=== PATIENT | female | born 1975 | race Hispanic/Latino ===

== ENCOUNTER 2022-09-12 12:10 | Emergency (ER) | payer BC ==
[2022-09-12] VITALS (8 sets, daily range): BP systolic 116–145; BP diastolic 49–70
[~2022-09-12 12:10] MED LIST: ANUSOL-HC25 MG RE; AUGMENTIN500 MG OR; DICLOFENAC SODI75 MG PO; DOXY-CAPS100 MG PO; NO HOME MEDS; PERCOCET 5/325M1 TAB OR; PRILOSEC20 MG/CAP PO; PROCTOFOAM HC10 GM RE; RECTICARE EX; [UNRECOGNIZED DRUG - CODE] EX
[2022-09-12 14:34] LABS: BASO% 0.9 % (0-3); EOS% 3.4 % (0-8); IMMATURE GRANULOCYTES 0.3 % (0.0-5.0); LYMPH% 35.3 % (15-41); MEAN CORPUSCULAR HGB 19.6 pG CALC (26.0-32.0); MEAN CORPUSCULAR HGB CONC 29.8 g/dL CAL (32.0-36.0); MONO% 10.7 % (2-13); NEUT# 2.9 thou/uL (2.00-7.15); NEUT% 49.4 % (42-76); RED BLOOD COUNT 4.38 mill/uL (4.20-5.60); RED CELL DISTRI WIDTH 18.3 % (11.5-15.5)
[2022-09-12 14:35] LABS: HEMATOCRIT 28.9 % (37.0-47.0); HEMOGLOBIN 8.6 g/dl (12.0-16.0)
[2022-09-12 14:47] LABS: ALBUMIN 4.4 g/dL (3.2-5.0); ALKALINE PHOSPHATASE 66 u/l (38-126); ANION GAP 9 (6-22 (CALC)); BUN 10 mg/dL (7-17); BUN/CREATININE RATIO 19 (12-20 (CALC)); CARBON DIOXIDE 24 mmol/l (22-30); CHLORIDE 107 mmol/l (95-108); CREATININE 0.5 mg/dL (0.5-1.0); GFR FOR AFR.AMER. > 60 ML/MIN (>=60 (CALC)); GFR OTHER RACES > 60 ML/MIN (>=60 (CALC)); SGOT/AST 29 u/l (14-36); SODIUM 136 mmol/l (137-146); TOTAL PROTEIN 7.9 g/dL (6.3-8.2)
== END 2022-09-12 17:52 | disposition home or self-care (01) | DRG 313 ==
LOC: ED 12:10
PROVIDERS: Family Medicine
DX: R07.9 Chest pain, unspecified (principal); M54.50 Low back pain, unspecified

== ENCOUNTER 2024-05-03 10:37 | Emergency (ER) | payer BC ==
[2024-05-03] VITALS (39 sets, daily range): BP systolic 56–148; BP diastolic 39–91
[~2024-05-03] VITALS: Ht 154.9 cm; Wt 92.9 kg
[2024-05-03 11:09] LABS: BASO% 1.1 % (0-3); EOS% 1.8 % (0-8); HEMATOCRIT 24.2 % (37.0-47.0); IMMATURE GRANULOCYTES 0.7 % (0.0-5.0); LYMPH% 27.7 % (15-41); MONO% 9.4 % (2-13); NEUT# 3.29 thou/uL (2.00-7.15); NEUT% 59.3 % (42-76); RED BLOOD COUNT 4.2 mill/uL (4.20-5.60); RED CELL DISTRI WIDTH 21.6 % (11.5-15.5)
[2024-05-03 11:13] LABS: URINE BILIRUBIN - DIPSTICK Negative (NEGATIVE); URINE BLOOD DIPSTICK Moderate (NEGATIVE); URINE GLUCOSE - DIPSTICK Negative (NEGATIVE); URINE KETONE Negative (NEGATIVE); URINE LEUK ESTERASE Negative (NEGATIVE); URINE NITRITE - DIPSTICK Negative (Negative); URINE PH 5.5 (4.5-8.0); URINE PROTEIN - DIPSTICK Negative (NEG-TRACE); URINE SPECIFIC GRAVITY >=1.030; URINE UROBILINOGEN - DIPSTICK 0.2 E.U./dL (0.2)
[2024-05-03 11:17] LABS: HEMOGLOBIN 6.3 g/dl (12.0-16.0); MEAN CELL VOLUME 57.6 fL CALC (80.0-100.0)
[2024-05-03 11:25] LABS: URINE COLOR Yellow
[2024-05-03 11:26] LABS: URINE MUCUS FEW hpf (NONE-FEW); URINE SQUAMOUS EPITHELIAL CELL FEW EPI/hpf (0-FEW); URINE WBC 0-2 WBC/hpf (0-5)
[2024-05-03 11:26] LABS: ALBUMIN 4.3 g/dL (3.2-5.0); CREATININE 0.5 mg/dL (0.5-1.0); POTASSIUM 3.7 mmol/l (3.5-5.1); TOTAL PROTEIN 7.6 g/dL (6.3-8.2)
[2024-05-03 11:27] LABS: BILIRUBIN, TOTAL 0.4 mg/dL (0.02-1.3)
[2024-05-03] MEDS ORDERED: SODIUM CHLORIDE 0.9% 500 ML IV ONE (11:35)
[2024-05-03 11:58] LABS: TSH, 3RD GENERATION 3.42 uIU/mL (0.47 - 4.68)
[2024-05-03] MEDS ORDERED: FERROUS SULF325 M3 PO (17:46)
== END 2024-05-03 18:26 | disposition home or self-care (01) | DRG 812 ==
LOC: ED 10:37
PROVIDERS: Family Medicine
PROC: 30233N1 Transfusion of Nonautologous Red Blood Cells into Peripheral Vein, Percutaneous Approach (ICD-10-PCS; principal; 2024-05-03)
PROC: 30233N1 Transfusion of Nonautologous Red Blood Cells into Peripheral Vein, Percutaneous Approach (ICD-10-PCS; 2024-05-03)
DX: D62 Acute posthemorrhagic anemia (principal); N92.0 Excessive and frequent menstruation with regular cycle
CPT/HCPCS: P9016

== ENCOUNTER 2024-09-12 12:10 | Emergency (ER) | payer BC ==
[~2024-09-12] VITALS: Ht 154.9 cm; Wt 98.0 kg
[2024-09-12] VITALS (8 sets, daily range): BP systolic 115–131; BP diastolic 65–94
[~2024-09-12 12:10] MED LIST changes: +FERROUS SULF325 M3 PO
[2024-09-12] MEDS ORDERED: SODIUM CHLORIDE 0.9% 1,000 ML IV ONE (12:30)
[2024-09-12 13:10] LABS: BASO% 0.8 % (0-3); EOS% 1.1 % (0-8); IMMATURE GRANULOCYTES 0.3 % (0.0-5.0); LYMPH% 24.1 % (15-41); MEAN CORPUSCULAR HGB 26.5 pG CALC (26.0-32.0); MEAN CORPUSCULAR HGB CONC 32.5 g/dL CAL (32.0-36.0); MONO% 6.8 % (2-13); NEUT# 4.21 thou/uL (2.00-7.15); NEUT% 66.9 % (42-76); RED BLOOD COUNT 4.57 mill/uL (4.20-5.60)
[2024-09-12 13:16] LABS: HEMATOCRIT 37.2 % (37.0-47.0); HEMOGLOBIN 12.1 g/dl (12.0-16.0); MEAN CELL VOLUME 81.4 fL CALC (80.0-100.0)
[2024-09-12 13:22] LABS: ALKALINE PHOSPHATASE 70 u/l (38-126); ANION GAP 11 (6-22 (CALC)); BILIRUBIN, TOTAL 0.4 mg/dL (0.02-1.3); BUN 15 mg/dL (7-17); BUN/CREATININE RATIO 26 (12-20 (CALC)); CARBON DIOXIDE 25 mmol/l (22-30); CHLORIDE 107 mmol/l (95-108); CREATININE 0.6 mg/dL (0.5-1.0); ESTIMATED GFR 111 ML/MIN (>=90 (CALC)); SGOT/AST 28 u/l (14-36); SODIUM 138 mmol/l (137-146); TOTAL PROTEIN 7.4 g/dL (6.3-8.2)
[2024-09-12 13:38] LABS: BETA-HCG, QUANT(RESULT NUMBER) <2 mIU/mL
[2024-09-12 13:54] LABS: URINE BLOOD DIPSTICK Large (NEGATIVE); URINE GLUCOSE - DIPSTICK Negative (NEGATIVE); URINE KETONE Trace mg/dL (NEGATIVE); URINE LEUK ESTERASE Negative (NEGATIVE); URINE NITRITE - DIPSTICK Negative (Negative); URINE PH 5.5 (4.5-8.0); URINE PROTEIN - DIPSTICK 100 mg/dL (NEG-TRACE); URINE SPECIFIC GRAVITY >=1.030; URINE UROBILINOGEN - DIPSTICK 0.2 E.U./dL (0.2)
[2024-09-12 14:05] LABS: URINE COLOR Dark yellow
[2024-09-12 14:07] LABS: URINE RBC 25-50 RBC/hpf (0-5)
[2024-09-12 14:08] LABS: URINE AMORPH SEDIMENT MODERATE hpf (NONE-FEW); URINE BACTERIA MODERATE hpf
[2024-09-12] MEDS ORDERED: PROGESTERONE200 MG PO (16:41)
[2024-09-12] MEDS ORDERED: KEFLEX500 MG PO (16:41)
== END 2024-09-12 16:45 | disposition home or self-care (01) | DRG 760 ==
LOC: ED 12:10
PROVIDERS: Nurse Practitioner
DX: N93.8 Other specified abnormal uterine and vaginal bleeding (principal); N39.0 Urinary tract infection, site not specified; D25.9 Leiomyoma of uterus, unspecified

== ENCOUNTER 2024-10-10 16:29 | Emergency (ER) | payer BC ==
[~2024-10-10] VITALS: Ht 154.9 cm; Wt 90.7 kg
[2024-10-10] VITALS (10 sets, daily range): BP systolic 116–144; BP diastolic 67–93
[~2024-10-10 16:29] MED LIST changes: +KEFLEX500 MG PO; +PROGESTERONE200 MG PO
[2024-10-10] MEDS ORDERED: SODIUM CHLORIDE 0.9% 1,000 ML IV ONE (16:50)
[2024-10-10 17:12] LABS: BASO% 0.8 % (0-3); EOS% 1.9 % (0-8); HEMATOCRIT 33.5 % (37.0-47.0); HEMOGLOBIN 10.4 g/dl (12.0-16.0); IMMATURE GRANULOCYTES 0.4 % (0.0-5.0); LYMPH% 29.9 % (15-41); MEAN CELL VOLUME 83.8 fL CALC (80.0-100.0); MONO% 7.7 % (2-13); NEUT# 3.07 thou/uL (2.00-7.15); NEUT% 59.3 % (42-76); RED CELL DISTRI WIDTH 14.9 % (11.5-15.5)
[2024-10-10 17:35] LABS: ALBUMIN 4.3 g/dL (3.2-5.0); BILIRUBIN, TOTAL 0.5 mg/dL (0.02-1.3); CREATININE 0.5 mg/dL (0.5-1.0); POTASSIUM 4.2 mmol/l (3.5-5.1); TOTAL PROTEIN 7.4 g/dL (6.3-8.2)
[2024-10-10 18:51] LABS: BASO% 0.9 % (0-3); EOS% 0.9 % (0-8); HEMATOCRIT 31.4 % (37.0-47.0); HEMOGLOBIN 9.7 g/dl (12.0-16.0); IMMATURE GRANULOCYTES 0.2 % (0.0-5.0); LYMPH% 23.9 % (15-41); MEAN CELL VOLUME 84.4 fL CALC (80.0-100.0); MEAN CORPUSCULAR HGB 26.1 pG CALC (26.0-32.0); MEAN CORPUSCULAR HGB CONC 30.9 g/dL CAL (32.0-36.0); MONO% 7.2 % (2-13); NEUT# 3.73 thou/uL (2.00-7.15); NEUT% 66.9 % (42-76); RED BLOOD COUNT 3.72 mill/uL (4.20-5.60); RED CELL DISTRI WIDTH 14.7 % (11.5-15.5)
[2024-10-10] MEDS ORDERED: TRANEXAMIC ACID 100 MG/ML 10ML IV ONE (19:30)
== END 2024-10-10 20:32 | disposition home or self-care (01) | DRG 921 ==
LOC: ED 16:29
PROVIDERS: Emergency Medicine
DX: N99.61 Intraoperative hemorrhage and hematoma of a genitourinary system organ or structure complicating a genitourinary system procedure (principal); Y84.8 Other medical procedures as the cause of abnormal reaction of the patient, or of later complication, without mention of misadventure at the time of the procedure